=== PATIENT | male | born 1995 | race Caucasian/White ===

== ENCOUNTER 2021-08-06 09:47 | Emergency (ER) | payer OTHER ==
[~2021-08-06] VITALS: Ht 172.7 cm; Wt 63.5 kg
--- NOTE | 2021-08-06 09:47 | NUR ---
PT [facility] 87 AND [employer] C/O FENTANYL AND METH USED 12HRS AGO. PT IS AAOX3, NOT IN RESPIRATORY DISTRESS, HOOKED TO V/S MONITOR, KEPT RESTED AND COMFORTABLE. WILL CONTINUE TO MONITOR.
[2021-08-06 09:52] VITALS: BP 114/70
[2021-08-06] MEDS ORDERED: NALO4SPR BNOSTRILS (11:56)
== END 2021-08-06 12:14 ==
LOC: ER 09:50
DX: F19.10 Other psychoactive substance abuse, uncomplicated (principal); F11.10 Opioid abuse, uncomplicated; F15.10 Other stimulant abuse, uncomplicated; Z60.2 Problems related to living alone